=== PATIENT | female | born 2000 | race Caucasian/White ===

== ENCOUNTER 2023-06-09 14:29 | Emergency (ER) | payer OTHER ==
[~2023-06-09] VITALS: Ht 165 cm; Wt 127.0 kg
[2023-06-09 14:58] VITALS: BP 133/79
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
[2023-06-09] MEDS ORDERED: HOLD METFORMIN - RECEIVED CONTRAST 20 ML VIAL IV SCH (15:00)
[2023-06-09] MEDS ORDERED: NS 100 ML (IVPB) BAG IV ONE (15:00)
[2023-06-09] MEDS ORDERED: IOHEXOL 350 MG/ML 100 ML (OMNIPAQUE 350) VIAL IV ONE (15:00)
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
[2023-06-09] MEDS ORDERED: HYDROcodone/ACETAMINOPHEN 5 MG/325 MG TABLET PO ONE (16:00)
[2023-06-09] MEDS ORDERED: IBUP-1773 PO (16:10)
[2023-06-09] MEDS ORDERED: ACHD5005 PO (16:10)
[2023-06-09] MEDS ORDERED: CYCL10TA25 PO (16:10)
== END 2023-06-09 16:40 | disposition home or self-care (01) ==
LOC: ER 14:35
DX: S22.040A Wedge compression fracture of fourth thoracic vertebra, initial encounter for closed fracture (principal); S22.050A Wedge compression fracture of T5-T6 vertebra, initial encounter for closed fracture; M25.572 Pain in left ankle and joints of left foot; Z28.310 Unvaccinated for COVID-19; V48.5XXA Car driver injured in noncollision transport accident in traffic accident, initial encounter; Y92.410 Unspecified street and highway as the place of occurrence of the external cause
CPT/HCPCS: 70450; 71260; 72125; 72128; 72131; 73610